=== PATIENT | male | born 1985 | race Caucasian/White ===

== ENCOUNTER 2020-02-25 07:33 | Emergency (ER) | payer MEDICARE ==
[~2020-02-25] VITALS: Ht 188 cm; Wt 81.8 kg
[~2020-02-25 07:33] MED LIST: BACTRIM DS TABL1 TAB PO; HYDROCODONE-APA1 TAB PO
[2020-02-25 07:37] VITALS: Ht 188 cm; Wt 81.8 kg
[2020-02-25] MEDS ORDERED: SEROQUEL XR150 MG PO (07:39)
[2020-02-25 07:56] LABS: BASOPHILS 0.2 % (0-2); EOSINOPHILS 0.5 % (0-7); HEMATOCRIT 47.6 % (42.0-54.0); HEMOGLOBIN 16.4 g/dL (13.5-17.5); IMMATURE GRANULOCYTES 0.3 % (0-5); LYMPHOCYTES 9.9 % (15-50); MCH 28.6 pg (26.0-34.0); MCHC 34.5 g/dL (31.0-37.0); MCV 83.1 fL (80.0-100.0); MEAN PLATELET VOLUME 9.8 fL (7.4-10.4); MONOCYTES 8.8 % (2-11); NEUTROPHILS 80.3 % (40-80); PLATELET COUNT 261 10x3/uL (130-400); RBC 5.73 10x6/uL (4.20-6.10); RDW 13.8 % (11.5-14.5); WBC 12.6 10x3/uL (4.8-10.8)
[2020-02-25 08:02] LABS: UDS - AMPHET POSITIVE QUAL (NEGATIVE); UDS - BARB NEGATIVE QUAL (NEGATIVE); UDS - BENZO NEGATIVE QUAL (NEGATIVE); UDS - COCAINE NEGATIVE QUAL (NEGATIVE); UDS - OPIATE NEGATIVE QUAL (NEGATIVE); UDS - PCP NEGATIVE QUAL (NEGATIVE); UDS - THC NEGATIVE QUAL (NEGATIVE)
[2020-02-25 08:06] LABS: ANION GAP 13.2 mmol/L (8-16); CALCIUM 10.1 mg/dL (8.5-10.1); CARBON DIOXIDE 27.2 mmol/L (21.0-32.0); CREATININE - SERUM 1.2 mg/dL (0.6-1.3); POTASSIUM - SERUM 3.4 mmol/L (3.5-5.1)
[2020-02-25 08:13] LABS: ALBUMIN 4.5 g/dL (3.4-5.0); BILIRUBIN - TOTAL 0.38 mg/dL (0.2-1.3); PROTEIN - SERUM 8.4 g/dL (6.4-8.2)
[2020-02-25 08:48] LABS: NITRITE NEGATIVE (NEGATIVE)
[2020-02-25 08:49] LABS: BILIRUBIN NEGATIVE (NEGATIVE); GLUCOSE NEGATIVE (NEGATIVE); KETONE NEGATIVE (NEGATIVE); UROBILINOGEN NORMAL (NORMAL)
[2020-02-25 11:07] VITALS: BP 143/92
== END 2020-02-25 11:08 | disposition home or self-care (01) ==
LOC: D.ER 07:33
PROVIDERS: Family Medicine
DX: F15.90 Other stimulant use, unspecified, uncomplicated (principal)